=== PATIENT | female | born 1965 | race Caucasian/White ===

== ENCOUNTER → 2016-08-01 | Outpatient (CLI) | payer OTHER ==
--- NOTE | 2016-08-01 08:30 | US ---
Ultrasound Pelvis Complete (Transabdominal and Endovaginal) Including Duplex/Doppler Imaging History: E66.3, F51, vaginal bleeding. Technique: Transabdominal and endovaginal ultrasound images were obtained. Endovaginal images obtain ed for better evaluation of the uterine myometrium and adnexa. Duplex/Doppler imaging of adnexa. Findings: Uterus measures 10 x 5 x 5 cm. Endometrial thickness is 3 mm. In the posterior body of the uterus there is an exophytic heterogeneous 7.4 x 7.4 x 5.3 cm leiomyoma with necrotic center. In the posterior fundus there is a subserosal 1.8 x 1.6 x 1 cm hypoechoic leiomyoma. Right ovary measures 2 .5 x 1.3 x 1 cm. Left ovary measures 2.1 x 1.1 x 0.9 cm. No adnexal masses. No significant free flui d in the pelvis. Color Doppler flow to both ovaries without torsion. Impression: 1. Leiomyomatous uterus with two leiomyomata identified including the largest measuring 7.4 x 7.4 x 5 .3 cm. 2. Endometrial thickness 3 mm. 3. Normal ovaries. 4. No ascites.
== END ==
LOC: FIMAGING 07:24
PROVIDERS: ATTEND Obstetrics & Gynecology Gynecology
DX: D25.9 Leiomyoma of uterus, unspecified (principal); R93.8 Abnormal findings on diagnostic imaging of other specified body structures

== ENCOUNTER → 2017-02-13 | Outpatient (CLI) | payer OTHER | LOC: FIMAGING 15:19 | PROVIDERS: ATTEND Obstetrics & Gynecology Gynecology | DX: Z12.31 Encounter for screening mammogram for malignant neoplasm of breast (principal) | CPT/HCPCS: G0202 ==

== ENCOUNTER → 2017-08-15 | Outpatient (CLI) | payer OTHER | LOC: FIMAGING 15:17 | PROVIDERS: ATTEND Obstetrics & Gynecology Gynecology | DX: D25.9 Leiomyoma of uterus, unspecified (principal) ==

== ENCOUNTER → 2018-02-14 | Outpatient (CLI) | payer OTHER | DX: Z12.31 Encounter for screening mammogram for malignant neoplasm of breast (principal); N63.10 Unspecified lump in the right breast, unspecified quadrant ==